=== PATIENT | female | born 1935 | race Caucasian/White ===

== ENCOUNTER 2024-03-27 08:11 | Outpatient (CLI) | payer OTHER | END 2024-03-27 23:59 | disposition home or self-care (01) | LOC: US 08:11 | PROVIDERS: ATTEND Student in an Organized Health Care Education/Training Program | DX: K76.0 Fatty (change of) liver, not elsewhere classified (principal); N28.1 Cyst of kidney, acquired; K85.80 Other acute pancreatitis without necrosis or infection | CPT/HCPCS: 76700 ==